=== PATIENT | female | born 1970 | race Caucasian/White ===

== ENCOUNTER 2018-01-26 13:50 | Emergency (ER) | payer MEDICAID ==
[~2018-01-26] VITALS: Ht 170.2 cm; Wt 127.9 kg
[2018-01-26 14:06] VITALS: BP 121/89
[2018-01-26] MEDS ORDERED: LEVOFLOXACIN 500 MG TAB PO ONE (17:35)
[2018-01-26] MEDS ORDERED: KETOROLAC 60 MG/2 ML VIAL IM ONE (17:35)
[2018-01-26 17:43] LABS: APPEARANCE,URINE CLEAR (CLEAR); COLOR,URINE YELLOW (YELLOW); LEUKOCYTE ESTERASE ,URINE NEGATIVE (NEGATIVE); NITRITE, URINE NEGATIVE (NEGATIVE)
[2018-01-26 17:46] LABS: BILIRUBIN,URINE NEGATIVE (NEGATIVE); BLOOD, URINE NEGATIVE (NEGATIVE); UGLUCOSE NEGATIVE (NEGATIVE)
[2018-01-26 18:48] VITALS: BP 127/81
== END 2018-01-26 18:47 | disposition home or self-care (01) ==
LOC: MED 13:50
DX: N30.90 Cystitis, unspecified without hematuria (principal); G43.909 Migraine, unspecified, not intractable, without status migrainosus; M06.9 Rheumatoid arthritis, unspecified
CPT/HCPCS: 81003; 81025; 96372; 99283; J1885

== ENCOUNTER 2018-01-28 08:12 | Emergency (ER) | payer MEDICAID ==
[~2018-01-28] VITALS: Ht 167.6 cm; Wt 145.1 kg
[2018-01-28 08:21] VITALS: BP 137/96
[2018-01-28] MEDS ORDERED: NACL 0.9% 1,000 ML IV SCH (08:21)
[2018-01-28] MEDS ORDERED: NACL 0.9% 1,000 ML IV ONE (08:21)
[2018-01-28] MEDS ORDERED: DICYCLOMINE HCL LIQUID 10 MG/5 ML UDC PO ONE (08:25)
[2018-01-28] MEDS ORDERED: KETOROLAC 30 MG/ML VIAL IVP ONE (08:25)
[2018-01-28] MEDS ORDERED: ONDANSETRON 4 MG/2 ML VIAL IVP ONE (08:25)
[2018-01-28] MEDS ORDERED: MORPHINE SULFATE 2 MG/ML SYR IVP ONE (08:25)
--- NOTE | 2018-01-28 08:30 | NUR ---
PT. BIB DAUGHTER DUE TO ABD PAIN AND DIAHRRHEA X 4 DAYS. PT. STATES " I HAVE BEEN HAVING DIARRHEA FOR ABOUT 4 DAYS AND NOW ITS MORE LIKE A MUCOUS AND CLEAR FLUID, MY STOMACH HURTS TOO". 6/10 UMBILICAL SHARP PAIN THAT RADIATES TO HER BACK. ABD SOFT AND TENDER UPON PALPATION IN LLQ. PT DENIES ANY FEVER AND CHILLS AND DENIES ANY VOMITING. DIARRHEA AND DENIES ANY BLOOD IN STOOL. DAUGHTER AT BEDSIDE. WILL CONTINUE TO MONITOR, SAFETY PRECAUTIONS IMPLEMENTED. ER MD MADE AWARE .
[2018-01-28] MEDS ORDERED: MORPHINE SULFATE 4 MG/ML SYR ONE (08:36)
[2018-01-28 08:56] LABS: BASOPHILS # (AUTO) 0.1 K/uL (0.00-0.22); BASOPHILS % (AUTO) 0.8 % (0.0-2.0); EOSINOPHILS # (AUTO) 0.1 K/uL (0-0.4); EOSINOPHILS % (AUTO) 1.3 % (0.0-4.0); HEMATOCRIT 40.5 % (36-48); HEMOGLOBIN 13.5 g/dL (12.0-16.0); LYMPHOCYTES # (AUTO) 1.6 K/uL (2.5-16.5); LYMPHOCYTES % (AUTO) 21.3 % (20.5-51.1); MEAN CORPUSCULAR HEMOGLOBIN 28 pg (27-31); MEAN CORPUSCULAR HGB CONC 33 g/dL (33-37); MEAN CORPUSCULAR VOLUME 84.6 fL (80-94); MONOCYTES # (AUTO) 0.5 K/uL (0.8-1.0); MONOCYTES % (AUTO) 6.8 % (1.7-9.3); NEUTROPHILS # (AUTO) 5.2 K/uL (1.8-7.7); NEUTROPHILS % (AUTO) 69.8 % (42.2-75.2); PLATELET COUNT (AUTO) 221 K/uL (140-450); RED BLOOD CELL COUNT(AUTO) 4.79 MIL/uL (4.20-5.40); RED CELL DISTRIBUTION WIDTH 13.4 % (11.6-13.7); WHITE BLOOD COUNT (AUTO) 7.4 K/uL (4.8-10.8)
--- NOTE | 2018-01-28 09:04 | NUR ---
ultrasound at bedside
--- NOTE | 2018-01-28 09:04 | NUR ---
ULTRASOUND AT BEDSIDE AT THIS TIME.
[2018-01-28 09:23] LABS: ALBUMIN 3.7 g/dL (3.4-5.0); ANION GAP 14.7 (8-16); CARBON DIOXIDE 22.2 mmol/L (21-32); CREATININE 0.8 mg/dL (0.6-1.3); POTASSIUM 3.9 mmol/L (3.5-5.1); TOTAL BILIRUBIN 0.3 mg/dL (0.0-1.0)
--- NOTE | 2018-01-28 09:41 | NUR ---
PT TAKEN TO CT VIA YAMILA
[2018-01-28 09:58] LABS: APPEARANCE,URINE CLEAR (CLEAR); BILIRUBIN,URINE NEGATIVE (NEGATIVE); BLOOD, URINE NEGATIVE (NEGATIVE); COLOR,URINE YELLOW (YELLOW); LEUKOCYTE ESTERASE ,URINE NEGATIVE (NEGATIVE); NITRITE, URINE NEGATIVE (NEGATIVE); UGLUCOSE NEGATIVE (NEGATIVE)
--- NOTE | 2018-01-28 10:23 | NUR ---
pt. is resting comfortably in bed, RR even and unlabored. Will continue to monitor.VSS.
--- NOTE | 2018-01-28 11:24 | NUR ---
pt. rsting in bed, rr even and unlabored. vss. ultrasound at bedside.
[2018-01-28 13:13] VITALS: BP 123/89
--- NOTE | 2018-01-28 13:13 | NUR ---
Patient discharged with v/s stable. Written and verbal after care instructions given and explained. Patient alert, oriented and verbalized understanding of instructions. Ambulatory with steady gait. All questions addressed prior to discharge. ID band removed. Patient advised to follow up with PMD. Rx of FIORICET given. Patient educated on indication of medication including possible reaction and side effects. Opportunity to ask questions provided and answered.
== END 2018-01-28 13:13 | disposition home or self-care (01) ==
LOC: MED 08:12
DX: D25.9 Leiomyoma of uterus, unspecified (principal); K80.20 Calculus of gallbladder without cholecystitis without obstruction; K80.50 Calculus of bile duct without cholangitis or cholecystitis without obstruction; E66.9 Obesity, unspecified; Z79.899 Other long term (current) drug therapy
CPT/HCPCS: 36415; 74177; 76705; 76856; 80053; 81003; 81025; 82150; 83690; 85025; 96361; 96374; 96375; 99285; J1885; J2270; J2405; Q0092; Q9967

== ENCOUNTER 2018-12-11 17:56 | Emergency (ER) | payer MEDICAID ==
[~2018-12-11] VITALS: Ht 170.2 cm; Wt 130.2 kg
[2018-12-11 18:01] VITALS: BP 148/69
--- NOTE | 2018-12-11 18:10 | NUR ---
PATIENT PRESENTS TO ED WITH C/O BLEEDING FROM SUTURE REMOVAL SITE, [place]. PT STATES SHE HAD HER GALLBLADDER REMOVED 12/05/18 AND WENT TO [facility] TO HAVE THE SUTURES REMOVED TODAY AND LATER AFTER GOING HOME SHE NOTICED SHE WAS BLEEDING "ALOT" FROM THE AREA. PAIN 5/10 TO UMBILL[facility] AREA. VSS; PATIENT POSITIONED FOR COMFORT; HOB ELEVATED; BEDRAILS UP X2; BED DOWN. ER MD MADE AWARE OF PT STATUS.
--- NOTE | 2018-12-11 19:09 | NUR ---
REPORT GIVEN TO GUM ROLLING MACHINE OPERATOR NURSE FOR CONTINUE OF CARE.
--- NOTE | 2018-12-11 20:20 | NUR ---
Dr. Jose examinig patient.
[2018-12-11 20:40] VITALS: BP 132/95
--- NOTE | 2018-12-11 20:45 | NUR ---
PT DISCHARGED WITH PAPERWORK. RX BACITRACIN. EDUCATED PT REGARDING MEDICATION AND S/E. EDUCATED PT REGARDING D/C DIAGNOSIS AND INSTRUCTIONS. PT VERBALIZED UNDERSTANDING OF TEACHING. TOLD PT TO FOLLOW UP WITH PCP AND WHEN TO RETURN TO ED. PT VSS. NO BLEEDING ON AFFECTED WOUND. ALL QUESTIONS ANSWERED.
== END 2018-12-11 20:45 | disposition home or self-care (01) ==
LOC: MED 17:56
DX: Z48.815 Encounter for surgical aftercare following surgery on the digestive system (principal); Z90.49 Acquired absence of other specified parts of digestive tract; Z88.1 Allergy status to other antibiotic agents
CPT/HCPCS: 99283

== ENCOUNTER 2018-12-28 10:51 | Emergency (ER) | payer MEDICAID ==
[~2018-12-28] VITALS: Ht 170.2 cm; Wt 131.1 kg
[2018-12-28 11:01] VITALS: BP 118/90
[2018-12-28] MEDS ORDERED: KETOROLAC 30 MG/ML VIAL IVP ONE (11:50)
[2018-12-28 12:26] LABS: BASOPHILS # (AUTO) 0.1 K/uL (0.00-0.22); BASOPHILS % (AUTO) 0.7 % (0.0-2.0); EOSINOPHILS # (AUTO) 0.3 K/uL (0-0.4); EOSINOPHILS % (AUTO) 3.3 % (0.0-4.0); HEMATOCRIT 37.6 % (36-48); HEMOGLOBIN 12.4 g/dL (12.0-16.0); LYMPHOCYTES # (AUTO) 2.4 K/uL (2.5-16.5); LYMPHOCYTES % (AUTO) 25.7 % (20.5-51.1); MEAN CORPUSCULAR HEMOGLOBIN 28 pg (27-31); MEAN CORPUSCULAR HGB CONC 33 g/dL (33-37); MEAN CORPUSCULAR VOLUME 85.6 fL (80-94); MONOCYTES # (AUTO) 0.7 K/uL (0.8-1.0); MONOCYTES % (AUTO) 7.7 % (1.7-9.3); NEUTROPHILS # (AUTO) 5.8 K/uL (1.8-7.7); NEUTROPHILS % (AUTO) 62.6 % (42.2-75.2); PLATELET COUNT (AUTO) 234 K/uL (140-450); RED BLOOD CELL COUNT(AUTO) 4.39 MIL/uL (4.20-5.40); RED CELL DISTRIBUTION WIDTH 12.7 % (11.6-13.7); WHITE BLOOD COUNT (AUTO) 9.2 K/uL (4.8-10.8)
[2018-12-28 12:44] LABS: ANION GAP 13.9 (8-16); CARBON DIOXIDE 26.1 mmol/L (21-32); CREATININE 0.7 mg/dL (0.6-1.3)
[2018-12-28 12:49] LABS: ALBUMIN 3.3 g/dL (3.4-5.0); TOTAL BILIRUBIN 0.8 mg/dL (0.0-1.0)
[2018-12-28 13:32] VITALS: BP 121/84
== END 2018-12-28 13:32 | disposition home or self-care (01) ==
LOC: MED 10:51
DX: R09.1 Pleurisy (principal); G43.909 Migraine, unspecified, not intractable, without status migrainosus; Z90.49 Acquired absence of other specified parts of digestive tract; Z88.6 Allergy status to analgesic agent
CPT/HCPCS: 36415; 71045; 80053; 81002; 81025; 84484; 85025; 85379; 93005; 96374; 99284; J1885; Q0092

== ENCOUNTER 2019-03-28 15:32 | Emergency (ER) | payer MEDICAID ==
[~2019-03-28] VITALS: Ht 170.2 cm; Wt 135.6 kg
[2019-03-28 15:49] VITALS: BP 128/85
--- NOTE | 2019-03-28 16:53 | NUR ---
PT AMBULATED TO ER BED 02
--- NOTE | 2019-03-28 16:55 | NUR ---
C/O R THUMB PAIN S/P CLOSING IT IN A CAR DOOR YESTERDAY. + SWELLING & BRUSING. CMS INTACT. HX: NONE RX: NONE
[2019-03-28] MEDS ORDERED: hydrOXYzine HCL 25 MG TAB PO ONE (17:15)
[2019-03-28] MEDS ORDERED: MORPHINE SULFATE 4 MG/ML SYR IM ONE (17:15)
[2019-03-28] MEDS ORDERED: KETOROLAC 60 MG/2 ML VIAL IM ONE (17:15)
[2019-03-28 18:26] VITALS: BP 119/78
--- NOTE | 2019-03-28 18:26 | NUR ---
Patient discharged with v/s stable. Written and verbal after care instructions given and explained. Patient alert, oriented and verbalized understanding of instructions. Ambulatory with steady gait. All questions addressed prior to discharge. ID band removed. Patient advised to follow up with PMD. Rx of TRAMADOL & MOTRIN given. Patient educated on indication of medication including possible reaction and side effects. Opportunity to ask questions provided and answered.
== END 2019-03-28 18:26 | disposition home or self-care (01) ==
LOC: MED 15:32
DX: S60.011A Contusion of right thumb without damage to nail, initial encounter (principal); W23.0XXA Caught, crushed, jammed, or pinched between moving objects, initial encounter; Y93.89 Activity, other specified; Y92.89 Other specified places as the place of occurrence of the external cause; Y99.8 Other external cause status
CPT/HCPCS: 29125; 73130; 96372; 99283; J1885; J2270

== ENCOUNTER 2020-11-30 01:25 | Emergency (ER) | payer MEDICAID ==
[~2020-11-30] VITALS: Ht 170.2 cm; Wt 123.8 kg
[2020-11-30 01:39] VITALS: BP 190/100
--- NOTE | 2020-11-30 01:39 | NUR ---
TO BED AMBULATORY
--- NOTE | 2020-11-30 02:10 | NUR ---
50 YO/F BIB SELF W CO OF EYE PAIN BILATERAL WORSE ON R EYE PULL/STRETCHING PAIN RADIATING TO R SIDE OF HEAD X5DAYS. PATIENT REPORTS SHE SAW AN ATTENDANCE OFFICER SATURDAY THAT TOLD HER HER OCCULAR PRESSURE WAS HIGH AND RECCOMENDED FOLLOW UP W HER PRIMARY BUT PAIN WORSENED. PATIENT PRESENTS PERRL 3MM, REDNESS NOTED TO BOTH EYES W RED BLOOD POOLED TO SCLERA R EYE.DENIES VISION PROBLEMS. BLOOD PRESSURE AT 157/95. PATIENT LAYING IN BED SUPINE, LOCKED IN LOWEST POSITION. ERMD ASSESSING PATIENT. PMH: DENIES NKA
[2020-11-30] MEDS ORDERED: TOMOMETER 1 DEV DEV MC ONE (02:18)
[2020-11-30 02:34] LABS: APPEARANCE,URINE CLEAR (CLEAR); BILIRUBIN,URINE NEGATIVE (NEGATIVE); BLOOD, URINE TRACE-I (NEGATIVE); COLOR,URINE YELLOW (YELLOW); LEUKOCYTE ESTERASE ,URINE NEGATIVE (NEGATIVE); NITRITE, URINE NEGATIVE (NEGATIVE); UGLUCOSE NEGATIVE (NEGATIVE)
[2020-11-30 02:35] LABS: BASOPHILS % (AUTO) 0.2 % (0.0-2.0); EOSINOPHILS # (AUTO) 0.1 K/uL (0-0.4); EOSINOPHILS % (AUTO) 1.4 % (0.0-4.0); HEMATOCRIT 37.6 % (36-48); HEMOGLOBIN 12.4 g/dL (12.0-16.0); LYMPHOCYTES # (AUTO) 3.4 K/uL (2.5-16.5); LYMPHOCYTES % (AUTO) 32.9 % (20.5-51.1); MEAN CORPUSCULAR HEMOGLOBIN 28 pg (27-31); MEAN CORPUSCULAR HGB CONC 33 g/dL (33-37); MEAN CORPUSCULAR VOLUME 84.5 fL (80-94); MONOCYTES # (AUTO) 0.6 K/uL (0.8-1.0); MONOCYTES % (AUTO) 5.8 % (1.7-9.3); NEUTROPHILS # (AUTO) 6.1 K/uL (1.8-7.7); NEUTROPHILS % (AUTO) 59.7 % (42.2-75.2); PLATELET COUNT (AUTO) 253 K/uL (140-450); RED BLOOD CELL COUNT(AUTO) 4.45 MIL/uL (4.20-5.40); RED CELL DISTRIBUTION WIDTH 13.7 % (11.6-13.7); WHITE BLOOD COUNT (AUTO) 10.2 K/uL (4.8-10.8)
[2020-11-30 02:57] LABS: ALBUMIN 3.5 g/dL (3.4-5.0); ANION GAP 12.7 (8-16); CARBON DIOXIDE 29.4 mmol/L (21-32); CREATININE 0.8 mg/dL (0.6-1.3); POTASSIUM 4.1 mmol/L (3.5-5.1); TOTAL BILIRUBIN 0.2 mg/dL (0.0-1.0)
[2020-11-30 02:58] LABS: RBC,URINE 0-5 /HPF (0-5); WBC,URINE 0-5 /HPF (0-5)
[2020-11-30] MEDS ORDERED: lisinopriL 20 MG TAB PO ONE (03:00)
[2020-11-30] MEDS ORDERED: ACETAMINOPHEN EXTRA STRENGTH 500 MG TAB PO ONE (03:35)
[2020-11-30] MEDS ORDERED: TIM.5OS OP (03:48)
[2020-11-30] MEDS ORDERED: HYDR-39 PO (03:48)
[2020-11-30 03:58] VITALS: BP 150/87
--- NOTE | 2020-11-30 03:58 | NUR ---
Patient discharged with v/s stable BY . Written and verbal after care instructions given and explained . Patient alert, oriented and verbalized understanding of instructions . Ambulatory with steady gait. All questions addressed prior to discharge. ID band removed V. Patient advised to follow up with PMD . Rx of LISINOPRIL, TIMOLOL given . Patient educated on indication of medication including possible reaction and side effects . Opportunity to ask questions provided and answered .
== END 2020-11-30 03:58 | disposition home or self-care (01) ==
LOC: MED 01:25
DX: H40.9 Unspecified glaucoma (principal); I10 Essential (primary) hypertension; H11.31 Conjunctival hemorrhage, right eye; Z79.899 Other long term (current) drug therapy
CPT/HCPCS: 36415; 80053; 81001; 85025; 87086; 96365; 96375; 99284

== ENCOUNTER 2023-03-04 19:31 | Emergency (ER) | payer BC, MEDICAID ==
[~2023-03-04] VITALS: Ht 170.2 cm; Wt 123.4 kg
[~2023-03-04 19:31] MED LIST: HYDR-2853 PO; TIM.5OS OP
[2023-03-04 20:00] VITALS: BP 149/85; PULSE 80; RESP 20; TEMP 98; O2SAT 98
[2023-03-04] MEDS ORDERED: TRAM50TA3 PO (22:04)
== END 2023-03-04 22:18 | disposition home or self-care (01) ==
LOC: MED 19:31
DX: S86.912A Strain of unspecified muscle(s) and tendon(s) at lower leg level, left leg, initial encounter (principal); Z79.899 Other long term (current) drug therapy; X58.XXXA Exposure to other specified factors, initial encounter; Y92.89 Other specified places as the place of occurrence of the external cause; Y93.89 Activity, other specified; Y99.8 Other external cause status
CPT/HCPCS: 99281